=== PATIENT | male | born 2005 | race Caucasian/White ===

== ENCOUNTER 2024-07-18 01:06 | Outpatient (CLI) | payer OTHER, SELFPAY | END 2024-07-18 01:07 | disposition home or self-care (01) | LOC: AMB 07-19 12:40 | PROVIDERS: Visit Provider Family Medicine | DX: F10.129 Alcohol abuse with intoxication, unspecified (principal); R11.2 Nausea with vomiting, unspecified | CPT/HCPCS: A0998 ==